=== PATIENT | male | born 1940 | race Caucasian/White ===

== ENCOUNTER 2019-03-05 14:17 | Emergency (ER) | payer OTHER ==
[~2019-03-05] VITALS: Ht 180.3 cm; Wt 81.6 kg
[~2019-03-05 14:17] MED LIST: ATIVAN0.5 M1; FLOMAX; PERCOCET 5/3251 TAB PO; RELAGESIC 5001 EACH PO; TOPROL XL25 MG PO; TORADOL10 MG PO; ULTRACET; [UNRECOGNIZED DRUG - OTHER]
[2019-03-05] MEDS ORDERED: COZAAR50 MG PO (15:01)
== END 2019-03-05 22:07 | disposition home or self-care (01) ==
LOC: ER 14:17
DX: M51.35 Other intervertebral disc degeneration, thoracolumbar region (principal); B96.0 Mycoplasma pneumoniae [M. pneumoniae] as the cause of diseases classified elsewhere; R05 Cough

== ENCOUNTER 2019-05-17 16:10 | Emergency (ER) | payer OTHER ==
[~2019-05-17] VITALS: Ht 180.3 cm; Wt 81.6 kg
[~2019-05-17 16:10] MED LIST changes: +COZAAR50 MG PO
[2019-05-17] MEDS ORDERED: CARAFATE1 GM (16:39)
[2019-05-17] MEDS ORDERED: ALLOPURINOL300 MG (16:39)
[2019-05-17] MEDS ORDERED: RESTORIL15 M1 (16:39)
[2019-05-17] MEDS ORDERED: SPIRIVA RESPIMAT4 G1 (16:40)
[2019-05-17] MEDS ORDERED: XOPENEX0.63 MG/3 IH (20:06)
[2019-05-17] MEDS ORDERED: MEDROLPACK PO (20:06)
[2019-05-17] MEDS ORDERED: SPIRIVA RESPIMAT4 G1 IH (20:06)
[2019-05-17] MEDS ORDERED: TUSNEL LIQUID178 ML PO (20:06)
[2019-05-17] MEDS ORDERED: ZITHROMAX500 MG PO (20:06)
== END 2019-05-17 20:09 | disposition home or self-care (01) ==
LOC: ER 16:10 → EDBD 16:26 → ER 16:26
DX: J44.1 Chronic obstructive pulmonary disease with (acute) exacerbation (principal); B96.0 Mycoplasma pneumoniae [M. pneumoniae] as the cause of diseases classified elsewhere